=== PATIENT | male | born 1975 | race American Indian/Alaskan Native ===

== ENCOUNTER 2019-06-03 01:16 | Emergency (ER) | payer SELFPAY ==
[2019-06-03] MEDS ORDERED: IPRATROPIUM 0.02% NEBU 2.5 ML IH ONE (01:35)
[2019-06-03] MEDS ORDERED: dexAMETHasone 20 MG/5 ML VIAL IM ONE (01:35)
[2019-06-03] MEDS ORDERED: ALBUTEROL 2.5 MG/3 ML NEBU IH ONE ×2 (01:35→01:37)
[2019-06-03] MEDS ORDERED: dexAMETHasone 20 MG/5 ML VIAL ONE (01:37)
--- NOTE | 2019-06-03 01:58 | Emergency Department Report ---
ED Asthma HPI - General Chief Complaint: Dyspnea/Respdistress Stated Complaint: ASTHMA Time Seen by Provider: 06/03/19 01:35 Source: patient Mode of arrival: Ambulatory Limitations: No Limitations - History of Present Illness Initial Comments: Patient is a 43-year-old male who presents emergency room with complaints of asthma exacerbation that began just prior to arrival. He has associated shortness of breath, wheezing, productive cough with mucus production. He denies any fever, recent travel, sick contacts. He states he has been using his albuterol inhaler and nebulizer treatments. He states he did approximately 3-4 nebulizer treatments today. He believes that the pollen exacerbated his asthma. He is a non-smoker. He denies any other medical problems. He denies any allergies to medications. He states that he has had to be admitted for his asthma in the past. He states he has had to be intubated due to his asthma in 2004. - Related Data Previous Rx's Medication Instructions Recorded Last Taken Type Albuterol Sulfate [Albuterol 0.63% 0.63 mg IH TID PRN #1 box 06/03/19 Unknown Rx NEBS] Albuterol Sulfate [Proventil Hfa] 6.7 gm IH TID PRN #1 hfa.aer.ad 06/03/19 Unknown Rx Amoxicillin/Potassium Clav 1 each PO BID 7 Days #14 tablet 06/03/19 Unknown Rx [Augmentin 875-125 Tablet] Azithromycin [Zithromax TAB] 250 mg PO QDAY 5 Days #6 tablet 06/03/19 Unknown Rx predniSONE [Deltasone] 40 mg PO QDAY 5 Days #10 tab 06/03/19 Unknown Rx Allergies Allergy/AdvReac Type Severity Reaction Status Date / Time No Known Allergies Allergy Verified 06/03/19 01:42 ED Review of Systems ROS: Stated complaint: ASTHMA Other details as noted in HPI Comment: All other systems reviewed and negative ED Past Medical Hx - Past Medical History Previous Medical History?: Yes Hx Asthma: Yes - Surgical History Past Surgical History?: Yes Additional Surgical History: left hand - Social History Smoking Status: Never Smoker Substance Use Type: None - Medications Home Medications: Home Medications Medication Instructions Recorded Confirmed Last Taken Type Albuterol Sulfate [Albuterol 0.63% 0.63 mg IH TID PRN #1 box 06/03/19 Unknown Rx NEBS] Albuterol Sulfate [Proventil Hfa] 6.7 gm IH TID PRN #1 hfa.aer.ad 06/03/19 Unknown Rx Amoxicillin/Potassium Clav 1 each PO BID 7 Days #14 tablet 06/03/19 Unknown Rx [Augmentin 875-125 Tablet] Azithromycin [Zithromax TAB] 250 mg PO QDAY 5 Days #6 tablet 06/03/19 Unknown Rx predniSONE [Deltasone] 40 mg PO QDAY 5 Days #10 tab 06/03/19 Unknown Rx ED Physical Exam - General Limitations: No Limitations General appearance: alert - Head Head exam: Present: atraumatic, normocephalic - Eye Eye exam: Present: normal appearance - ENT ENT exam: Present: mucous membranes moist - Respiratory Respiratory exam: Present: respiratory distress (moderate), wheezes (bilaterally inspiratory and expiratory), decreased breath sounds (bilaterally), prolonged expiratory. Absent: rales, rhonchi, stridor, chest wall tenderness, accessory muscle use - Cardiovascular Cardiovascular Exam: Present: regular rate, normal rhythm, normal heart sounds. Absent: systolic murmur, diastolic murmur, rubs, gallop - Neurological Exam Neurological exam: Present: alert, oriented X3 - Psychiatric Psychiatric exam: Present: normal affect, normal mood - Skin Skin exam: Present: warm, dry, intact ED Course Vital Signs 06/03/19 06/03/19 01:19 03:21 Temperature 98.2 F 98.2 F Pulse Rate 90 100 H Respiratory 22 18 Rate Blood Pressure 144/87 Blood Pressure 141/69 [Right] O2 Sat by Pulse 96 97 Oximetry ED Medical Decision Making - Radiology Data Radiology results: report reviewed Chest x-ray Interpreted by Junior Payton MD Impression: Possible small focus of pneumonia in the left perihilar region - Medical Decision Making Patient is a 43-year-old male who presents emergency room with complaints of asthma exacerbation that began just prior to arrival. He has associated shortness of breath, wheezing, productive cough with mucus production. He denies any fever, recent travel, sick contacts. He states he has been using his albuterol inhaler and nebulizer treatments. He states he did approximately 3-4 nebulizer treatments today. He believes that the pollen exacerbated his asthma. He is a non-smoker. He denies any other medical problems. He denies any allergies to medications. He states that he has had to be admitted for his asthma in the past. He states he has had to be intubated due to his asthma in 2004. vitals are stable, normal HR, normal oxygen saturation. CXR: Possible small focus of pneumonia in the left perihilar region. Initially patient in moderate respiratory distress, inspiratory and expiratory wheezing, prolonged expiratory phase, decreased breath sounds. Patient given 10 mg of albuterol, 1 mg of Atrovent, 10 mg of dexamethasone IM. On reexamination patient is feeling much better and standing in the hallway ready to go home, wheezing has signifi cantly improved, mild expiratory wheeze, no respiratory distress, no accessory muscle use. Discussed all findings with patient and answered questions. Discussed in detail strict return precautions with patient. Patient given prescription for azithromycin, Augmentin, prednisone. Patient given refill of his albuterol inhaler and nebulizer solution. advised pt Please use medications as prescribed. Please use your nebulizer treatments 3 times a day for the next few days. Follow-up with a primary care doctor for reexamination. Return to the emergency room immediately for any new or worsening symptoms including but not limited to worsening shortness of breath, high fevers, chest pain, difficulty breathing, etc. Critical care attestation.: If time is entered above; I have spent that time in minutes in the direct care of this critically ill patient, excluding procedure time. ED Disposition Clinical Impression: Asthma Qualifiers: Asthma severity: unspecified severity Asthma persistence: unspecified Asthma complication type: with acute exacerbation Qualified Code(s): J45.901 - Unspecified asthma with (acute) exacerbation CAP (community acquired pneumonia) Qualifiers: Laterality: left Lung location: upper lobe of lung Qualified Code(s): J18.9 - Pneumonia, unspecified organism Disposition: DC-01 TO HOME OR SELFCARE Is pt being admited?: No Does the pt Need Aspirin: No Condition: Stable Instructions: Asthma (ED), Bacterial Pneumonia (ED) Additional Instructions: Please use medications as prescribed. Please use your nebulizer treatments 3 times a day for the next few days. Follow-up with a primary care doctor for reexamination. Return to the emergency room immediately for any new or worsening symptoms including but not limited to worsening shortness of breath, high fevers, chest pain, difficulty breathing, etc. Prescriptions: Albuterol Sulfate [Albuterol 0.63% NEBS] 0.63 mg IH TID PRN #1 box PRN Reason: Wheezing Amoxicillin/Potassium Clav [Augmentin 875-125 Tablet] 1 each PO BID 7 Days #14 tablet predniSONE [Deltasone] 40 mg PO QDAY 5 Days #10 tab Albuterol Sulfate [Proventil Hfa] 6.7 gm IH TID PRN #1 hfa.aer.ad PRN Reason: Shortness Of Breath Azithromycin [Zithromax TAB] 250 mg PO QDAY 5 Days #6 tablet Referrals: NATALIIA ARREOLA MD [Staff Physician] - 2-3 Days [facility] [Provider Group] - 2-3 Days [facility] [Outside] - 2-3 Days [facility] [Outside] - 2-3 Days Time of Disposition: 03:41 Print Language: ALBANIAN
[2019-06-03 03:23] VITALS: BP 141/69
--- NOTE | 2019-06-03 03:37 | XRay Report ---
CHEST 2 VIEWS INDICATION / CLINICAL INFORMATION: SOB, cough, wheezing, hx of asthma. COMPARISON: None available. FINDINGS: SUPPORT DEVICES: None. HEART / MEDIASTINUM: No significant abnormality. LUNGS / PLEURA: Small patchy parenchymal density in the left perihilar region may represent mild or e van pneumonia. No pneumothorax. ADDITIONAL FINDINGS: No significant additional findings. IMPRESSION: 1. Possible small focus of pneumonia in the left perihilar region. Signer Name: Xander Payton MD Signed: 06/03/2019 3:32 AM Workstation Name: [id number]
== END 2019-06-03 03:50 | disposition home or self-care (01) ==
LOC: EDSEX → ED 01:16
DX: J45.909 Unspecified asthma, uncomplicated (principal); J18.9 Pneumonia, unspecified organism; Z98.890 Other specified postprocedural states; Z79.2 Long term (current) use of antibiotics; Z79.899 Other long term (current) drug therapy
CPT/HCPCS: 71046; 94640; 96372; 99283; J1100

== ENCOUNTER 2019-07-10 23:24 | Emergency (ER) | payer MEDICAID ==
[2019-07-10] MEDS ORDERED: IPRATROPIUM 0.02% NEBU 2.5 ML IH ONE ×2 (23:37→23:45)
[2019-07-10] MEDS ORDERED: ALBUTEROL 2.5 MG/3 ML NEBU IH ONE ×2 (23:37→23:45)
[2019-07-10] MEDS ORDERED: methylPREDNISolone Sod Succinate 125 MG/2 ML INJ ONE (23:40)
[2019-07-10] MEDS ORDERED: MAGNESIUM SULFATE 2 GM/50 ML BAG IV ONE ×2 (23:40→23:50)
--- NOTE | 2019-07-10 23:46 | Emergency Department Report ---
ED Shortness of Breath HPI - General Chief Complaint: Adult Asthma Stated Complaint: ASTHMA Time Seen by Provider: 07/10/19 23:43 Source: patient Mode of arrival: Ambulatory Limitations: No Limitations - History of Present Illness Initial Comments: Patient is a 44-year-old male that presents emergency room for asthma and shortness of breath.. Patient states he having an asthma attack. Patient states his symptoms started approximately 3 hours ago. Patient states his shortness of breath is better with rest and worse with exertion. Patient states he still has some inhalers at home. Patient states he is been using albuterol but nothing is working. Patient states he has been intubated twice in the past. Patient denies chest pain. Patient denies fever and chills. Patient states he is got a cough. Patient states his cough is dry. Patient denies recent travel. Patient denies recent international travel. Patient denies exposure to the novel coronavirus. Patient denies sick contacts. Patient denies fever and chills. Patient denies cough. Patient denies diarrhea. Patient denies coming in contact with anybody with symptoms of the novel coronavirus. MD Complaint: shortness of breath, cough, "asthma attack" -: Sudden Severity: severe Improves With: rest Worsens With: exertion Known History Of: asthma Associated Symptoms: cough Treatments Prior to Arrival: bronchodilator - Related Data Home Oxygen Therapy: No Previous Rx's Medication Instructions Recorded Last Taken Type Amoxicillin/Potassium Clav 1 each PO BID 7 Days #14 tablet 06/03/19 Unknown Rx [Augmentin 875-125 Tablet] RX: Albuterol Sulfate [Proventil 6.7 gm IH TID PRN #1 hfa.aer.ad 06/03/19 Unknown Rx Hfa] RX: Azithromycin [Zithromax TAB] 250 mg PO QDAY 5 Days #6 tablet 06/03/19 Unknown Rx RX: Albuterol Sulfate [Albuterol 0.63 mg IH TID PRN #1 box 07/11/19 Unknown Rx 0.63% NEBS] RX: predniSONE [Deltasone] 40 mg PO QDAY 5 Days #10 tab 07/11/19 Unknown Rx Allergies Allergy/AdvReac Type Severity Reaction Status Date / Time No Known Allergies Allergy Verified 06/03/19 01:42 ED Review of Systems ROS: Stated complaint: ASTHMA Other details as noted in HPI Constitutional: denies: chills, fever Eyes: denies: eye pain, eye discharge, vision change ENT: denies: ear pain, throat pain Respiratory: cough, shortness of breath, SOB with exertion, SOB at rest, wheezing Cardiovascular: denies: chest pain, palpitations Endocrine: no symptoms reported Gastrointestinal: denies: abdominal pain, nausea, diarrhea Genitourinary: denies: urgency, dysuria Musculoskeletal: denies: back pain, joint swelling, arthralgia Skin: denies: rash, lesions Neurological: denies: headache, weakness, paresthesias Psychiatric: denies: anxiety, depression Hematological/Lymphatic: denies: easy bleeding, easy bruising ED Past Medical Hx - Past Medical History Previous Medical History?: Yes Hx Asthma: Yes - Surgical History Past Surgical History?: Yes Additional Surgical History: left hand - Family History Family history: no significant - Social History Smoking Status: Never Smoker Substance Use Type: None - Medications Home Medications: Home Medications Medication Instructions Recorded Confirmed Last Taken Type Amoxicillin/Potassium Clav 1 each PO BID 7 Days #14 tablet 06/03/19 Unknown Rx [Augmentin 875-125 Tablet] RX: Albuterol Sulfate [Proventil 6.7 gm IH TID PRN #1 hfa.aer.ad 06/03/19 Unknown Rx Hfa] RX: Azithromycin [Zithromax TAB] 250 mg PO QDAY 5 Days #6 tablet 06/03/19 Unknown Rx RX: Albuterol Sulfate [Albuterol 0.63 mg IH TID PRN #1 box 07/11/19 Unknown Rx 0.63% NEBS] RX: predniSONE [Deltasone] 40 mg PO QDAY 5 Days #10 tab 07/11/19 Unknown Rx ED Physical Exam - General Limitations: No Limitations General appearance: alert, in distress - Head Head exam: Present: atraumatic, normocephalic - Eye Eye exam: Present: normal appearance - ENT ENT exam: Present: mucous membranes moist - Neck Neck exam: Present: normal inspection - Respiratory Respiratory exam: Present: respiratory distress, wheezes - Cardiovascular Cardiovascular Exam: Present: regular rate, normal rhythm. Absent: systolic m urmur, diastolic murmur, rubs, gallop - GI/Abdominal GI/Abdominal exam: Present: soft, normal bowel sounds - Rectal Rectal exam: Present: deferred - Extremities Exam Extremities exam: Present: normal inspection - Back Exam Back exam: Present: normal inspection - Neurological Exam Neurological exam: Present: alert, oriented X3 - Psychiatric Psychiatric exam: Present: normal affect, normal mood - Skin Skin exam: Present: warm, dry, intact, normal color. Absent: rash ED Course Vital Signs 07/10/19 07/10/19 07/10/19 23:31 23:43 23:47 Temperature 98.6 F Pulse Rate 115 H Pulse Rate [ 118 H Throughout] Respiratory 19 24 Rate Respiratory 20 Rate [ Throughout] Blood Pressure 129/81 O2 Sat by Pulse 93 98 Oximetry 07/11/19 07/11/19 07/11/19 00:00 01:00 01:30 Temperature Pulse Rate Pulse Rate [ Throughout] Respiratory Rate Respiratory Rate [ Throughout] Blood Pressure 123/79 125/77 125/77 O2 Sat by Pulse 100 95 93 Oximetry - Reevaluation(s) Reevaluation #1: Initial evaluation done. Patient will be given Solu-Medrol, magnesium and DuoNeb as well as a 10 mg albuterol neb. 07/10/19 23:44 Reevaluation #2: Patient responded well to treatment. Patient's lung sounds are clear. Patient that she is feeling much better. 07/11/19 01:00 Reevaluation #3: Patient states he is feeling good. Patient states he is not having a difficulty breathing. Patient's lung sounds are clear. I discussed all results and clinical findings with patient. I discussed plan of care with patient. Patient agrees with plan of care. Patient is stable for discharge. Patient will be discharged home. Patient given discharge instructions. Patient voiced understanding of discharge instructions. 07/11/19 02:00 ED Medical Decision Making - Lab Data Result diagrams: 07/11/19 01:02 - Radiology Data Radiology results: report reviewed, image reviewed CHEST 1 VIEW, 07/11/2019 12:01 AM CLINICAL INFORMATION/INDICATION: Shortness of breath COMPARISON: Chest radiograph, 06/03/2019 FINDINGS: SUPPORT DEVICES: None. HEART: The cardiac silhouette is normal in size. LUNGS/PLEURA: The lungs are hyperexpanded but appear clear of focal airspace disease or pleural effusion. ADDITIONAL FINDINGS: No additional acute findings. IMPRESSION: 1. No evidence of acute cardiopulmonary process. - Medical Decision Making Patient is a 44-year-old male that presents emergency room with complaints of shortness of breath and asthmatic sounds. Patient found to have wheezing and difficulty breathing. Patient has status asthmaticus. Patient given magnesium, Solu-Medrol and a DuoNeb and patient responded well. Patient's lung sounds are clear after treatment. Patient discharged from the hospital essentially asymptomatic. Patient responded well to therapy. Patient stable for discharge. Patient discharged home. Patient chest x-ray is negative for acute findings. Patient's labs are unremarkable. - Differential Diagnosis Asthma exacerbation, status asthmaticus. Shortness of breath and cough Critical Care Time: Yes Critical care time in (mins) excluding proc time.: 35 Critical care attestation.: If time is entered above; I have spent that time in minutes in the direct care of this critically ill patient, excluding procedure time. Critical Care Time: 35 minutes ED Disposition Clinical Impression: SOB (shortness of breath) Status asthmaticus Qualifiers: Asthma severity: unspecified severity Asthma persistence: unspecified Qualified Code(s): J45.902 - Unspecified asthma with status asthmaticus Disposition: TO HOME OR SELFCARE Is pt being admited?: No Does the pt Need Aspirin: No Condition: Stable Instructions: Asthma (ED) Additional Instructions: Patient to follow-up with primary care in 2 to 3 days. Patient to follow-up with hydraulic elevator constructor in 2 to 3 days. Patient to rest. Patient to increase water. Patient to avoid strenuous exercise or heavy lifting until cleared by hydraulic elevator constructor. Patient to take Tylenol or ibuprofen as needed for pain. Patient to take meds as directed. Patient to return to the ER if condition worsens, changes or new symptoms arise. Prescriptions: RX: Albuterol Sulfate [Albuterol 0.63% NEBS] 0.63 mg IH TID PRN #1 box PRN Reason: Wheezing RX: predniSONE [Deltasone] 40 mg PO QDAY 5 Days #10 tab Referrals: PRIMARY CARE, [Primary Care Provider] - 2-3 Days Time of Disposition: 01:59
[2019-07-10] MEDS ORDERED: methylPREDNISolone Sod Succinate 125 MG/2 ML INJ IV ONE (23:49)
--- NOTE | 2019-07-11 00:25 | XRay Report ---
CHEST 1 VIEW, 07/11/2019 12:01 AM CLINICAL INFORMATION/INDICATION: Shortness of breath COMPARISON: Chest radiograph, 06/03/2019 FINDINGS: SUPPORT DEVICES: None. HEART: The cardiac silhouette is normal in size. LUNGS/PLEURA: The lungs are hyperexpanded but appear clear of focal airspace disease or pleural effus ion. ADDITIONAL FINDINGS: No additional acute findings. IMPRESSION: 1. No evidence of acute cardiopulmonary process. Signer Name: Charlene Ludwig MD Signed: 07/11/2019 12:21 AM Workstation Name: [id number]
[2019-07-11 02:15] LABS: Hematocrit 45.5 % (35.5-45.6); Hemoglobin 14.7 gm/dl (11.8-15.2); Mean Corpuscular HGB Conc 32 % (32-34); Mean Corpuscular Volume 86 fl (84-94); Platelet Count 303 K/mm3 (140-440); Red Blood Count 5.31 M/mm3 (3.65-5.03); Red Cell Distribution Width 14.4 % (13.2-15.2)
[2019-07-11 02:34] VITALS: BP 126/74
== END 2019-07-11 02:34 | disposition home or self-care (01) ==
LOC: ED 23:24
DX: J45.902 Unspecified asthma with status asthmaticus (principal); R06.02 Shortness of breath; Z98.890 Other specified postprocedural states; Z79.2 Long term (current) use of antibiotics; Z79.899 Other long term (current) drug therapy
CPT/HCPCS: 36415; 71045; 85027; 94644; 96365; 96366; 96375; 99284; J2930; J3475